=== PATIENT | female | born 1955 | race Caucasian/White ===

== ENCOUNTER 2022-01-30 08:07 | Day surgery (SDC) | payer BC ==
[~2022-01-30 08:07] MED LIST: EPINEPHrine 1 MG/ML 30 ML MDV IRR SCH; Lactated Ringers 1,000 ML IV SCH; Lidocaine 1%/Sod Bicarbonate in NS 8.4% 1 ML Syringe IDERM PRN; Midazolam 1 MG/ML 2 ML SDV ONE; Ondansetron 4 MG/2 ML SDV ONE; Propofol 200 MG/20 ML SDV ONE; Sodium Chloride 0.9% 10 ML Syringe FLUSH PRN; Sodium Chloride 0.9% 10 ML Syringe FLUSH SCH; ceFAZolin 2 GM Vial ONE; fentaNYL 100 MCG/2 ML SDV ONE
[2022-01-30] MEDS ORDERED: Bupivacaine 0.25% 10 ML SDV ONE (09:08)
[2022-01-30] MEDS ORDERED: Albuterol 0.083% 2.5 MG/3 ML Neb Soln NEB ONE (09:21)
[2022-01-30] MEDS ORDERED: Lidocaine 1% PF 2 ML SDV ONE (10:30)
[2022-01-30] MEDS ORDERED: Acetaminophen/HYDROcodone 325-5 MG Tab PO SCH (10:57)
[2022-01-30] MEDS ORDERED: fentaNYL 100 MCG/2 ML SDV ONE (10:59)
[2022-01-30] MEDS ORDERED: Propofol 200 MG/20 ML SDV ONE (11:01)
[2022-01-30] MEDS ORDERED: Ketorolac 30 MG/ML SDV ONE (11:04)
[2022-01-30] MEDS ORDERED: fentaNYL 100 MCG/2 ML SDV IVPUSH PRN (11:29)
[2022-01-30] MEDS ORDERED: Ondansetron 4 MG/2 ML SDV IVPUSH PRN (11:29)
[2022-01-30] MEDS ORDERED: HYDROmorphone 0.5 MG/0.5 ML Syringe IVPUSH PRN (11:29)
[2022-01-30] MEDS ORDERED: Acetaminophen/HYDROcodone 325-5 MG Tab PO ONE (12:00)
== END 2022-01-30 13:30 | disposition home or self-care (01) ==
LOC: JD.SDS 08:07
PROVIDERS: ATTEND Orthopaedic Surgery
DX: M17.12 Unilateral primary osteoarthritis, left knee (principal); M94.262 Chondromalacia, left knee; S83.242A Other tear of medial meniscus, current injury, left knee, initial encounter; F17.210 Nicotine dependence, cigarettes, uncomplicated; Z91.018 Allergy to other foods; J44.9 Chronic obstructive pulmonary disease, unspecified; Z79.899 Other long term (current) drug therapy; Z98.890 Other specified postprocedural states
CPT/HCPCS: 29879; A9270; J0171; J0690; J1885; J2250; J2405; J2704; J3010; J3490; J7120; 01400

== ENCOUNTER 2022-06-03 11:35 | Day surgery (SDC) | payer BC, MEDICARE ==
[~2022-06-03 11:35] MED LIST changes: +Acetaminophen 325 MG Tab PO SCH; -EPINEPHrine 1 MG/ML 30 ML MDV IRR SCH; -Midazolam 1 MG/ML 2 ML SDV ONE; +Morphine 8 MG, EPINEPHrine 0.3 MG, Cefuroxime 750 MG, Ketorolac 30 MG, Sodium Chloride ... PRN; -Ondansetron 4 MG/2 ML SDV ONE; +Pregabalin 25 MG Cap PO SCH; -Propofol 200 MG/20 ML SDV ONE; +Tranexamic Acid 1,000 MG/10 ML Vial ONE; +Vancomycin 1 GM SDV ONE; -ceFAZolin 2 GM Vial ONE; -fentaNYL 100 MCG/2 ML SDV ONE; +oxyCODONE ER 10 MG TAB.ER PO SCH
[2022-06-03] MEDS ORDERED: fentaNYL 100 MCG/2 ML SDV ONE ×3 (12:13→15:06)
[2022-06-03] MEDS ORDERED: Lidocaine 1% 4 ML ONE (12:13)
[2022-06-03] MEDS ORDERED: ceFAZolin 2 GM Vial ONE (12:13)
[2022-06-03] MEDS ORDERED: Midazolam 1 MG/ML 2 ML SDV ONE (12:13)
[2022-06-03] MEDS ORDERED: Propofol 200 MG/20 ML SDV ONE (12:13)
[2022-06-03] MEDS ORDERED: EPINEPHrine 1 MG/ML SDV ONE (13:00)
[2022-06-03] MEDS ORDERED: Ropivacaine 0.5% 5 MG/ML 30 ML SDV ONE (13:00)
[2022-06-03] MEDS ORDERED: Lactated Ringers 1,000 ML ONE (13:27)
[2022-06-03] MEDS ORDERED: fentaNYL 100 MCG/2 ML SDV IVPUSH PRN (14:57)
[2022-06-03] MEDS ORDERED: HYDROmorphone 0.5 MG/0.5 ML Syringe IVPUSH PRN (14:57)
[2022-06-03] MEDS ORDERED: Ondansetron 4 MG/2 ML SDV IVPUSH PRN (14:57)
== END 2022-06-03 18:25 | disposition home or self-care (01) ==
LOC: JD.SDS 11:35
PROVIDERS: ATTEND Orthopaedic Surgery
DX: M17.12 Unilateral primary osteoarthritis, left knee (principal); E87.6 Hypokalemia; J44.9 Chronic obstructive pulmonary disease, unspecified; F17.210 Nicotine dependence, cigarettes, uncomplicated; Z79.899 Other long term (current) drug therapy; Z91.018 Allergy to other foods; Z98.890 Other specified postprocedural states
CPT/HCPCS: 0055T; 27447; 73560; 97110; 97116; 97161; A9270; C1713; C1776; J0171; J0690; J0697; J1170; J1885; J2250; J2270; J2704; J2795; J3010; J3370; J7120; 01402; 64450; 76942

== ENCOUNTER 2025-06-03 19:00 | Emergency (ER) | payer MEDICARE ==
[2025-06-03 19:39] LABS: BASOPHILS ABSOLUTE AUTO 0.0 K/mm3 (0.0-0.2); BASOPHILS PERCENT AUTO 0.3 % (0.0-1.0); EOSINOPHILS ABSOLUTE AUTO 0.2 K/mm3 (0.0-0.4); EOSINOPHILS PERCENT AUTO 1.9 % (0.0-6.0); IMMATURE GRAN ABSOLUTE AUTO 0.02 K/mm3 (0.00-0.05); IMMATURE GRAN PERCENT AUTO 0.2 % (0.0-0.4); LYMPHOCYTES ABSOLUTE AUTO 4.3 K/mm3 (1.0-4.8); LYMPHOCYTES PERCENT AUTO 37.6 % (24.0-44.0); MEAN PLATELET VOLUME 10.7 fl (9.4-12.3); MONOCYTES ABSOLUTE AUTO 0.8 K/mm3 (0.0-0.8); MONOCYTES PERCENT AUTO 7.2 % (0.0-8.0); NEUTROPHILS ABSOLUTE AUTO 6.0 K/mm3 (1.8-7.7); NEUTROPHILS PERCENT AUTO 52.8 % (41.0-71.0); NRBC ABSOLUTE 0.00 (0.00-0.02); NRBC PERCENT 0.0 % (0.0-0.2); PLATELET COUNT,PLT 235 K/mm3 (150-400); RED BLOOD CELL COUNT 4.55 M/mm3 (4.10-5.30); WHITE BLOOD CELL COUNT,WBC 11.46 K/mm3 (3.9-11.3)
[2025-06-03] MEDS: Ondansetron 4 MG/2 ML SDV IV STA (19:41)
[2025-06-03 20:05] LABS: A/G RATIO 0.9 (1-2); ALANINE AMINOTRANSFERASE,ALT 28.0 U/L (14-59); ASPARTATE AMNIOTRANSFERASE,AST 13.0 U/L (15-37); BILIRUBIN TOTAL 0.5 mg/dL (0.2-1.0); BLOOD UREA NITROGEN,BUN 13.0 mg/dL (7-18); CARBON DIOXIDE,CO2 28.0 mEq/L (21-32); CHLORIDE,CL 106.0 mEq/L (98-107); CREATINE KINASE,CK 50.0 U/L (26-192); CREATININE 0.8 mg/dL (0.55-1.02); EST CRCL DRUG DOSING (CG) 50.79 mL/min; ESTIMATED GFR 80.0 mL/min (>60); GLUCOSE RANDOM 102.0 mg/dL (70-99); POTASSIUM,K 3.0 mEq/L (3.5-5.1); PROTEIN TOTAL,TP 7.0 g/dl (6.4-8.2); SODIUM,NA 142.0 mEq/L (136-145); TROPONIN I HIGH SENSITIVITY 8.0 pg/mL (<=51)
[2025-06-03] MEDS: Potassium Chloride 20 MEQ Tab.ER PO ONE (20:52)
== END 2025-06-03 20:45 | disposition home or self-care (01) ==
LOC: JD.ED 19:00
DX: R00.2 Palpitations (principal); R42 Dizziness and giddiness; I10 Essential (primary) hypertension; E87.6 Hypokalemia; E86.0 Dehydration; J44.9 Chronic obstructive pulmonary disease, unspecified; M19.90 Unspecified osteoarthritis, unspecified site; Z79.899 Other long term (current) drug therapy; Z90.49 Acquired absence of other specified parts of digestive tract
CPT/HCPCS: 36415; 70450; 80053; 80307; 82550; 83735; 84484; 85025; 93005; 96361; 96374; 99285; A9270; J2405; J7030